=== PATIENT | male | born 1955 | race Caucasian/White ===

== ENCOUNTER 2018-01-10 13:11 | Observation (INO) | payer OTHER ==
--- NOTE | 2018-01-10 13:05 | PDPROPOC ---
Sedation Plan of Care Sedation Plan of Care: vital signs stable, mental status noted, patient educated of risks, benefits, alternatives, patient can tolerate sedation ASA Classification: ASA 3 Planned drugs: fentanyl, midazolam Mallampati Score: Class 3 Mallampati Reference Image: Patient passed 3-3-2 rule?: Yes
--- NOTE | 2018-01-10 13:05 | PDHPUP ---
History & Physical Update H&P update statement: This history and physical update is based on an assessment of the patient which was completed after admission or registration (within 24 hours), but prior to the surgery/procedure. H&P update: H&P reviewed & patient examined, no change in patient's condition since H&P completed
[2018-01-10] MEDS ORDERED: DIAZEPAM 5 MG TAB PO ONE (13:15)
[2018-01-10] MEDS ORDERED: ceFAZolin 2 GM/SWFI 2 GM/20 ML SYR IVP ONE (13:15)
[2018-01-10] MEDS ORDERED: diphenhydrAMINE 25 MG CAP PO ONE (13:15)
[2018-01-10] MEDS ORDERED: NS 1,000 ML IV ONE (13:15)
[2018-01-10] MEDS ORDERED: BACITRACIN IRRIGATION/NS 50,000 UNITS/1,000 ML BTL IRR ONE (13:15)
[2018-01-10 13:54] LABS: PLATELET COUNT 168 10^3/uL (150-400)
[2018-01-10 14:05] LABS: INR 1.16 (0.83-1.16)
[2018-01-10] MEDS ORDERED: IOPAMIDOL (ISOVUE-300) 50 ML VIAL ONE (15:03)
[2018-01-10] MEDS ORDERED: LIDOCAINE 1% 300 MG/30 ML SDV ONE (15:03)
[2018-01-10] MEDS ORDERED: fentaNYL 100 MCG/2 ML INJ ONE ×2 (15:04→15:29)
[2018-01-10] MEDS ORDERED: LIDO/EPI 1% **for epidural** 30 ML SDV ONE (15:04)
[2018-01-10] MEDS ORDERED: MIDAZOLAM 2 MG/2 ML VIAL ONE ×2 (15:04→15:30)
[2018-01-10] MEDS ORDERED: BUPIVACAINE 0.5% 30 ML SDV ONE (15:05)
[2018-01-10] MEDS ORDERED: ETOMIDATE 40 MG/20 ML INJ ONE (15:42)
--- NOTE | 2018-01-10 17:08 | CPEKG ---
Heart Rate: 74 RR Interval: 811 P-R Interval: 272 QRSD Interval: 108 QT Interval: 436 QTC Interval: 484 P [place]: 53 QRS [place]: 268 T Wave [place]: 105 EKG Severity - ABNORMAL ECG - EKG Impression: SINUS RHYTHM EKG Impression: FIRST DEGREE AV BLOCK EKG Impression: LEFT ATRIAL ABNORMALITY EKG Impression: LAD, CONSIDER LEFT ANTERIOR FASCICULAR BLOCK EKG Impression: ANTEROLATERAL INFARCT, AGE INDETERMINATE EKG Impression: BORDERLINE PROLONGED QT INTERVAL Electronically Signed By: Edwin Clemens 10-Jan-2018 17:31:36
[2018-01-10] MEDS: CARVEDILOL 3.125 MG TAB PO SCH (18:50)
--- NOTE | 2018-01-10 19:46 | CPIP ---
[f rep st] INVASIVE CARDIAC PROCEDURE DEVICE: [place] 7 VR-T DX/DF 1, ProMRI [id number], serial number [id number]. The RV lead is a Plexa ProMRI , DF-1 S DX 65/15, serial number [id number]. PROCEDURE PERFORMED: VDD MRI compatible defibrillator placement. INDICATION/APPROPRIATE USE CRITERIA: The patient had a massive myocardial infarction complicated by post cardiac arrest over 6 months ago and has a reduced ejection fraction at less than 35%; therefore , meets made it to criteria for AICD implantation. Because of his young age, we would like to track for atrial dysrhythmia to try to help reduce the risk long-term of an inappropriate shock. Therefore , a VDD device with low atrial electrodes was chosen for this particular patient. PROCEDURE IN DETAIL: After informed consent was obtained, n.p.o. status was confirmed. Region of th e left subclavicular fossa was cleaned, prepped, and draped in sterile fashion. Approximately 15 cc of 1% lidocaine was utilized for local anesthesia. A #15 blade was used to sharply incise the skin. Electrocautery and local pressure were used for hemostasis. Sharp and blunt dissection were used to perform a pacer pocket overlying the pectoralis major fascia. A pocket was formed using sharp and b deven dissection. Hemostasis was established and antibiotic-soaked gauze was placed in the pocket. T he patient was placed in Trendelenburg and an 18-gauge Cook needle was used to gain access to the lef t subclavian vein. The lead was then manipulated with care into the RV apex and screwed into place w ith a set screw noted. Pacing thresholds were 0.6 to 0.4 milliseconds, 0.6 V at 0.4 milliseconds, se nsing R waves of 15.4 mV. The P-wave amplitude through the device was 19 mV and with pacing in the v entricle, the lead impedance was normal at 578 ohms. The pocket was thoroughly flushed, checked for bleeding. The lead was sutured in place with 0 Ethibond. The atrial lead sensing portion lead was p laced in the upper pole lead housing. Set screws were firmly applied. This was repeated for the fifi tricular sense and pace lead in the lower pole on the same side, and then the defibrillator coil was connected to the pulse generator on the opposite side, and the set screws were all noted to be formal ly seated into place. The device was sutured in place with 0 silk. The pocket was flushed and antib iotic-soaked gauze was removed from the pocket prior to the device being inserted. The skin was then closed with a 3 layered 3-0 and 2-0 Vicryl followed by a 4-0 StrataFix subcuticular stitch. Excelle nt wound edge apposition and hemostasis were documented. There were no immediate complications. The patient returned to the post cath recovery unit in good and stable condition, where a stat postopera tive EKG and chest x-ray will be obtained. FINAL IMPRESSION: Successful MRI conditional VDD defibrillator placement for indication abated to marcello galvan. /[id number]/MODL
[2018-01-10] MEDS: OMEGA-3 FATTY ACIDS 1,000 MG CAP PO SCH (20:55)
[2018-01-10] MEDS ORDERED: ATORVASTATIN CALCIUM 20 MG TAB PO SCH (21:00)
[2018-01-10] MEDS: SILDENAFIL CITRATE 20 MG TAB PO SCH (22:20)
[2018-01-11 04:24] LABS: PLATELET COUNT 154 10^3/uL (150-400)
[2018-01-11] MEDS ORDERED: LEVOTHYROXINE 50 MCG TAB PO SCH (06:00)
[2018-01-11 07:48] VITALS: RESP 12; TEMP 97.7; O2SAT 97
--- NOTE | 2018-01-11 08:55 | CPEKG ---
Heart Rate: 73 RR Interval: 822 P-R Interval: 240 QRSD Interval: 106 QT Interval: 424 QTC Interval: 468 P [place]: 44 QRS [place]: 266 T Wave [place]: 101 EKG Severity - ABNORMAL ECG - EKG Impression: SINUS RHYTHM EKG Impression: FIRST DEGREE AV BLOCK EKG Impression: LEFT ATRIAL ABNORMALITY EKG Impression: LEFT ANTERIOR FASCICULAR BLOCK EKG Impression: CONSIDER LEFT VENTRICULAR HYPERTROPHY EKG Impression: LATERAL INFARCT, AGE INDETERMINATE Electronically Signed By: Edwin Clemens 11-Jan-2018 09:28:06
[2018-01-11] MEDS ORDERED: MULTIVITAMINS 1 EACH TAB PO SCH (09:00)
[2018-01-11] MEDS ORDERED: CHOLECALCIFEROL VIT D3 2,000 UNITS TAB/CAP PO SCH (09:00)
[2018-01-11] MEDS ORDERED: CLOPIDOGREL BISULFATE 75 MG TAB PO SCH (09:00)
[2018-01-11] MEDS ORDERED: SERTRALINE HCL 50 MG TAB PO SCH (09:00)
[2018-01-11] MEDS ORDERED: LISINOPRIL 2.5 MG TAB PO SCH (09:00)
[2018-01-11] MEDS: OMEGA-3 FATTY ACIDS 1,000 MG CAP PO SCH (09:41)
[2018-01-11] MEDS: CARVEDILOL 3.125 MG TAB PO SCH (09:44)
[2018-01-11] MEDS: SILDENAFIL CITRATE 20 MG TAB PO SCH (09:45)
[2018-01-11 09:46] VITALS: BP 101/70; PULSE 72
--- NOTE | 2018-01-11 10:18 | CPEKG ---
Heart Rate: 70 RR Interval: 857 P-R Interval: 252 QRSD Interval: 106 QT Interval: 444 QTC Interval: 480 P [place]: 38 QRS [place]: -88 T Wave [place]: 102 EKG Severity - ABNORMAL ECG - EKG Impression: SINUS RHYTHM EKG Impression: FIRST DEGREE AV BLOCK EKG Impression: LEFT ATRIAL ABNORMALITY EKG Impression: LEFT ANTERIOR FASCICULAR BLOCK EKG Impression: LEFT VENTRICULAR HYPERTROPHY EKG Impression: LATERAL INFARCT, AGE INDETERMINATE EKG Impression: CONSIDER ANTERIOR INFARCT EKG Impression: BORDERLINE PROLONGED QT INTERVAL Electronically Signed By: Edwin Clemens 11-Jan-2018 17:02:05
--- NOTE | 2018-01-12 01:42 | GDS ---
[f rep st] DISCHARGE SUMMARY DISCHARGE DIAGNOSES: 1. Coronary artery disease, status post massive myocardial infarction 04/13/2017 with percutaneous t ransluminal coronary angioplasty and stenting at an outside hospital. 2. Ischemic cardiomyopathy with ejection fraction on multigated acquisition scan measured at 32% wit h global hypokinesis. 3. Chronic kidney disease, stage 3, with recent cessation of dialysis in July. 4. History of hypothyroidism. PROCEDURES: On 01/10/2018, implantation of a VDD defibrillator. PHYSICIANS: Mahad Obrien MD BRIEF HISTORY: Please see dictated H and P from Dr. Obrien from clinic visit for complete details. In brief, this patient is a 62-year-old male, who suffered a massive ME in 2016, status post PTCA and stenting at that time. This was complicated by acute renal failure, but currently off dialysis. He has been followed by an outside orthodontic laboratory technician and recently presented to Dr. Obrien for continuation o f his cardiac care. He had a MUGA scan in our office 12/19/2017 which showed a gated ejection fracti on of 32% with global hypokinesis and moderately to severely reduced systolic function. His echo fro m 11/26/2017 showed moderate MR and TR. His ejection fraction was measured at 29% with an LV diastol ic dimension of 5.8 cm. Based on MADIT II criteria, ICD is indicated for an ischemic cardiomyopathy with an ejection fraction of less than 35% on 2 different imaging modalities. He proceeded to the VD D MRI conditional device on 01/10/2018. On day of discharge, patient denies any pain at pacer site. His chest x-rays have been stable. PHYSICAL EXAMINATION: VITAL SIGNS: On day of discharge, blood pressure 101/70, heart rate 72, respi rations 12, O2 saturation 97% on 2 L/min, temp of 97.7 degrees Fahrenheit. GENERAL: He is a very pl easant male in no apparent distress. EYES: PERRL. HEART: Regular rate and rhythm. LUNGS: Clear. CHEST: Left pectoral region without ecchymosis, minimal tenderness on palpation. DIAGNOSTIC DATA: Chest x-ray showed stable pacemaker placement. RESULTS PENDING: None. DIET: Per previous. ACTIVITY: Left arm precautions reviewed. DISCHARGE MEDICATIONS: Please see med reconciliation. He is being discharged on his home Revatio 20 mg p.o. t.i.d., carvedilol 3 mg p.o. b.i.d., levothyroxine, clopidogrel 75 mg p.o. daily, Zoloft, om ega-3 fatty acids, multivitamin, lisinopril, vitamin D3, atorvastatin 20 mg p.o. h.s. His Eliquis is on-hold until 01/13/2018. DISCHARGE INSTRUCTIONS: 1. Arm precautions. 2. Follow up in device clinic as scheduled. 3. Follow up with Dr. Obrien in 1 month's time. /[id number]/MODL
== END 2018-01-11 11:25 | disposition home or self-care (01) ==
LOC: FCATH 13:11 → F2W 14:50
PROVIDERS: ADMIT Internal Medicine Cardiovascular Disease; ATTEND Internal Medicine Cardiovascular Disease
DX: I25.5 Ischemic cardiomyopathy (principal); I25.10 Atherosclerotic heart disease of native coronary artery without angina pectoris; I25.2 Old myocardial infarction; Z95.5 Presence of coronary angioplasty implant and graft; N18.3 Chronic kidney disease, stage 3 (moderate); E03.9 Hypothyroidism, unspecified
CPT/HCPCS: 33249; 71045; 71046; 93005; A4649; G0378; C1722; C1777; J0690; J2250; J3010; Q9967